=== PATIENT | male | born 1975 | race Caucasian/White ===

== ENCOUNTER → 2017-03-20 | Outpatient (CLI) | payer BC ==
[2017-03-20 16:24] LABS: FREE T4 0.85 NG/DL (0.76-1.46)
[2017-03-24 00:07] LABS: TISSUE TRANSGLUTAMINASE IgG <2 U/mL (0-5)
== END ==
LOC: M WUC 12:17
PROVIDERS: ATTEND Physician Assistant Medical
DX: R19.7 Diarrhea, unspecified (principal)

== ENCOUNTER → 2020-10-12 | Outpatient (REF) | payer BC | LOC: M SMT 12:54 | PROVIDERS: ATTEND Urology | DX: Z30.2 Encounter for sterilization (principal) ==

== ENCOUNTER 2024-12-06 08:34 | Day surgery (SDC) | payer OTHER ==
[~2024-12-06] VITALS: Ht 180.3 cm; Wt 88.0 kg
[2024-12-06 11:28] VITALS: TEMP 97.3
[2024-12-06] MEDS ORDERED: LIDOCAINE 2% 100 MG/5 ML SDV (FOR ANES.) As Ordered ONE (11:35)
[2024-12-06 11:44] VITALS: BP 120/73; O2SAT 100
== END 2024-12-06 11:55 | disposition home or self-care (01) ==
LOC: M OPP 08:34
PROVIDERS: ATTEND Surgery
DX: Z12.11 Encounter for screening for malignant neoplasm of colon (principal); K57.30 Diverticulosis of large intestine without perforation or abscess without bleeding; K64.8 Other hemorrhoids; F17.220 Nicotine dependence, chewing tobacco, uncomplicated